=== PATIENT | male | born 1955 | race Caucasian/White ===

== ENCOUNTER 2019-11-07 12:05 | Inpatient (IN) | payer BC, OTHER ==
[~2019-11-07] VITALS: Ht 177.8 cm; Wt 100.1 kg
[2019-11-07 12:35] LABS: BASOPHILS ABSOLUTE AUTO 0.06 K/mm3 (0.00-0.23); BASOPHILS PERCENT AUTO 1 % (0-2); EOSINOPHILS ABSOLUTE AUTO 0.17 K/mm3 (0.00-0.68); EOSINOPHILS PERCENT AUTO 2 % (0-6); Hematocrit 30.9 % (37.0-53.0); Hemoglobin 10.2 g/dL (13.5-17.5); IMMATURE GRAN ABSOLUTE AUTO 0.02 K/mm3 (0.00-0.10); IMMATURE GRAN PERCENT AUTO 0 % (0-1); LYMPHOCYTES ABSOLUTE AUTO 1.59 K/mm3 (0.84-5.20); LYMPHOCYTES PERCENT AUTO 21 % (21-46); MONOCYTES ABSOLUTE AUTO 0.81 K/mm3 (0.16-1.47); MONOCYTES PERCENT AUTO 11 % (4-13); Mean Corpuscular HGB 31.5 pg (26.0-34.0); Mean Corpuscular Volume 95 fL (80-100); Mean Platelet Volume 8.6 fL (9.1-12.4); NEUTROPHILS ABSOLUTE AUTO 4.84 K/mm3 (1.96-9.15); NEUTROPHILS PERCENT AUTO 65 % (41-73); NRBC ABSOLUTE 0.03 K/mm3 (0.00-0.02); NRBC Auto 0.4 /100 WBC (0.0-0.2); Platelet Count 360 K/mm3 (150-400); RDW Standard Deviation 45.2 fL (35.1-46.3); Red Blood Cell Count 3.24 M/mm3 (4.30-5.90); White Blood Cell Count 7.49 K/mm3 (4.00-11.30)
[2019-11-07 12:54] LABS: Alanine Aminotransfer (ALT/SGP 28 U/L (12-78); Albumin, Blood 3.3 g/dL (3.4-5.0); Albumin/Globulin Ratio 0.8 (0.8-1.8); Alk Phos 66 U/L (50-136); Anion Gap 7 mmol/L (6-16); Aspartate Aminotrans (AST/SGOT 28 U/L (12-37); Bilirubin, Total 0.3 mg/dL (0.1-1.0); Blood Urea Nitrogen 10 mg/dL (8-24); Bun/Creatinine Ratio 10.5 (12.0-20.0); CO2, Blood 26 mmol/L (21-32); Calcium, Blood 8.3 mg/dL (8.5-10.1); Chloride, Blood 107 mmol/L (98-108); Creatinine, Blood 0.95 mg/dL (0.60-1.20); Globulin, Blood 4.4 g/dL (2.2-4.0); Glomerular Filtration Rate >60 (60-); Glucose, Blood 104 mg/dL (70-99); Potassium, Blood 3.8 mmol/L (3.5-5.5); Sodium, Blood 140 mmol/L (136-145); Total Protein, Blood 7.7 g/dL (6.4-8.2); Troponin I 0.054 ng/mL (0.000-0.040)
[2019-11-07] MEDS ORDERED: BRILINTA90 MG PO (14:41)
[2019-11-07] MEDS ORDERED: Metoprolol Tart50 MG PO (14:42)
[2019-11-07] MEDS ORDERED: SILDENAFIL CIT100 MG PO (14:43)
[2019-11-07] MEDS ORDERED: NITROGLYCERIN0.4 M3 SL (14:43)
[2019-11-07] MEDS ORDERED: Simvastatin40 MG PO (14:47)
[2019-11-07] MEDS ORDERED: NITR.4SL SL (14:48)
[2019-11-07] MEDS ORDERED: DELZICOL400 M1 PO (16:37)
--- NOTE | 2019-11-07 18:08 | NUR ---
SHIFT SUMMARY PATIENT IS A NEW ADMIT TO THE FLOOR AROUND 1600. PATIENT WAS SEEN BY DR. RODRIGUEZ AND WILL HAVE TELEMTRY. HE IS PLEASANT, ALERT AND ORIENTED AND NOTED TO HAVE SOB WITH SIGNIFICANT EXERTION. NO ACUTE CONCERNS AT THIS TIME. HE DENIES CHEST PAIN OR SHORTNESS OF BREATH AT THIS TIME.
[2019-11-07 21:30] LABS: Creatine Kinase MB 1.8 ng/mL (0.0-3.6); Creatine Kinase MB Index 1.3 (0.0-4.0); Troponin I 0.046 ng/mL (0.000-0.040)
[2019-11-08 05:18] LABS: BASOPHILS ABSOLUTE AUTO 0.06 K/mm3 (0.00-0.23); BASOPHILS PERCENT AUTO 1 % (0-2); EOSINOPHILS PERCENT AUTO 3 % (0-6); Hematocrit 29.3 % (37.0-53.0); Hemoglobin 9.3 g/dL (13.5-17.5); IMMATURE GRAN ABSOLUTE AUTO 0.01 K/mm3 (0.00-0.10); IMMATURE GRAN PERCENT AUTO 0 % (0-1); LYMPHOCYTES ABSOLUTE AUTO 1.43 K/mm3 (0.84-5.20); LYMPHOCYTES PERCENT AUTO 21 % (21-46); MONOCYTES ABSOLUTE AUTO 0.61 K/mm3 (0.16-1.47); MONOCYTES PERCENT AUTO 9 % (4-13); Mean Corpuscular HGB 30.6 pg (26.0-34.0); Mean Corpuscular HGB Conc 31.7 g/dL (31.5-36.5); Mean Corpuscular Volume 96 fL (80-100); Mean Platelet Volume 8.8 fL (9.1-12.4); NEUTROPHILS ABSOLUTE AUTO 4.46 K/mm3 (1.96-9.15); NEUTROPHILS PERCENT AUTO 66 % (41-73); Platelet Count 316 K/mm3 (150-400); RDW Coefficient Variation 14.4 % (11.7-14.2); RDW Standard Deviation 47.3 fL (35.1-46.3); Red Blood Cell Count 3.04 M/mm3 (4.30-5.90); White Blood Cell Count 6.77 K/mm3 (4.00-11.30)
[2019-11-08 05:49] LABS: Anion Gap 6 mmol/L (6-16); Blood Urea Nitrogen 11 mg/dL (8-24); CO2, Blood 26 mmol/L (21-32); Calcium, Blood 8.1 mg/dL (8.5-10.1); Chloride, Blood 108 mmol/L (98-108); Cholesterol 141 mg/dL (50-200); Creatinine, Blood 0.92 mg/dL (0.60-1.20); Glomerular Filtration Rate >60 (60-); Glucose, Blood 92 mg/dL (70-99); HDL Cholesterol 47 mg/dL (>39); LDL/HDL RATIO 1.6; Low Density Lipoprotein Chol 75 mg/dL (0-110); Potassium, Blood 3.6 mmol/L (3.5-5.5); Sodium, Blood 140 mmol/L (136-145); Triglycerides 93 mg/dL (30-160); Troponin I 0.058 ng/mL (0.000-0.040); Very Low Density Lipoprot Chol 18 mg/dL (6-32)
--- NOTE | 2019-11-08 07:52 | NUR ---
SHIFT SUMMARY PATIENT HAD NO COMPLAINTS OF SHORTNESS OF BREATH OR CHEST PAIN. SLEPT ALL NIGHT WITH MINIMAL NEEDS. IV PATENT AND FLUSHED. BED IN LOWEST POSITION WITH WHEELS LOCKED AND ALARM ON. CALL LIGHT WITHIN REACH. REPORT GIVEN TO ONCOMING RN.
--- NOTE | 2019-11-08 16:31 | NUR ---
HOME MEDICATIONS: NOTIFIED DR ORDONEZ OF PT REFUSING TO TAKE MEDICATIONS FROM PHARMACY. PT HAS HOME MEDICATIONS IN HIS PILL BOX AND WILL ONLY TAKE HIS PILLS. THE PILL BOTTLES ARE AT HOME WHICH IS IN [facility] SO HE DOES NOT HAVE ACCESS TO THEM. RECEIVED ORDER FROM DR ORDONEZ FOR PT TO CONTINUE TAKING HIS HOME MEDICATIONS. PAPER COUNTERNERIS KAMARA AND PHARMACY NOTIFIED.
--- NOTE | 2019-11-08 17:31 | NUR ---
SHIFT SUMMARY: PT A&O X4 AND INDEPENDENT IN ROOM. PT AMBULATED MULTIPLE TIMES AROUND HALLWAYS WITH . PT REPORTS NO PAIN OR NAUSEA. VSS. AT BEDSIDE FOR MOST OF THE DAY. PT ON TELE RUNNING AT [address] AT 1315. WILL CONTINUE TO MONITOR PT UNTIL GIVING REPORT TO NIGHT RN.
--- NOTE | 2019-11-09 04:44 | NUR ---
SHIFT SUMMARY- PT. PLEASANT AND COOPERATIVE WITH CARE. A&O, INDEP IN ROOM. DENIED C/O CP OR DISCOMFORT. ON RA, SR ON TELE. PT. ASLEEP T/O THE SHIFT. NO APPARENT DISTRESS NOTED. SCHEDULED FOR POSS SECOND PART OF STRESS TEST TODAY. CALL LIGHT WITHIN REACH AND SIDE RAILS UP X2. WILL CONT TO MONITOR.
[2019-11-09 09:13] LABS: Percent Saturation 9.5 % (20.0-50.0)
[2019-11-09 09:48] LABS: Thyroid Stimulating Hormone 5.12 uIU/mL (0.360-4.800)
[2019-11-09 12:02] LABS: Free Thyroxine 0.96 ng/dL (0.70-1.60)
[2019-11-09 12:04] LABS: Triiodothyronine, Free 2.46 pg/mL (2.18-3.98)
--- NOTE | 2019-11-10 05:56 | NUR ---
SHIFT SUMMARY PT IS A 64 Y/O MALE, ADMITTED FOR ELEVATED TROPONINS AND SOB. HE IS A&O X 4, ABLE TO AMBULATE INDEPENDENTLY. NO COMPLAINTS OF CHEST PAIN, SOB OR NAUSEA. VITAL SIGNS STABLE. TELE MONITOR SHOWED NSR @ 60. NO ACUTE CHANGES IN PT CONDITION NOTED. PT SLEPT WELL THROUGH THE NIGHT. WILL CONTINUE TO MONITOR AND TREAT PER EMAR UNTIL HAND OFF TO DAY SHIFT RN.
--- NOTE | 2019-11-10 10:39 | NUR ---
shift summary Pt a/o x 4. ambulating without assistance and no pain/sob. telemetry in place. pt npo for morning. taken to laborer heading by wheelchair approx 1030. iv in [address] and flushes.
--- NOTE | 2019-11-10 14:48 | NUR ---
ASSUMED PATIENT CARE. TR BAND IN PLACE, NO NEW DISCHARGE NOTED, NON-TENDER, NO SIGNS OF ACUTE DISTRESS, NO CHEST PAIN/PRESSURE.
--- NOTE | 2019-11-10 18:03 | NUR ---
NO ACUTE EVENTS THIS HALF OF SHIFT. PATIENT TRANSFERED TO UNIT FROM BROACH OPERATOR POST-ANGIO. NSTEMI, 2 PART STRESS TEST ABNORMAL, LEADING TO CARDIO CONSULT AND ANGIO TODAY. PATIENT HAS HISTORY OF STENTS. PATIENT DENIED CHEST PAIN/PRESSURE. R. RADIAL SITE NON-TENDER, NO NEW DRAINAGE NOTED. SKIN TEAR ON R. PALM, SOME BLEEDING ON PALM, REDRESSED WITH GAUZE AND CLOTH TAPE. NO SIGNS OF ACUTE DISTRESS, PATIENT IS ALERT AND ORIENTED.
--- NOTE | 2019-11-10 19:05 | NUR ---
RELINQUISHED PATIENT CARE.
--- NOTE | 2019-11-10 21:36 | NUR ---
UPDATE PT A&O; NSR NOTED ON TELE; PT DENIES CHEST PAIN; TR BAND REMOVED APPROXIMATELY 2100; SKIN TEAR ON HEEL OF HAND RE-DRESSED W/ 2X2 & BAND AID; PT DENIES NEEDS AT THIS TIME; CALL LIGHT IN REACH; BED IN LOWEST POSITION
[2019-11-11 03:51] LABS: BASOPHILS ABSOLUTE AUTO 0.05 K/mm3 (0.00-0.23); BASOPHILS PERCENT AUTO 1 % (0-2); EOSINOPHILS ABSOLUTE AUTO 0.19 K/mm3 (0.00-0.68); EOSINOPHILS PERCENT AUTO 2 % (0-6); Hematocrit 29.1 % (37.0-53.0); Hemoglobin 9.3 g/dL (13.5-17.5); IMMATURE GRAN ABSOLUTE AUTO 0.01 K/mm3 (0.00-0.10); IMMATURE GRAN PERCENT AUTO 0 % (0-1); LYMPHOCYTES ABSOLUTE AUTO 1.57 K/mm3 (0.84-5.20); LYMPHOCYTES PERCENT AUTO 20 % (21-46); MONOCYTES ABSOLUTE AUTO 0.64 K/mm3 (0.16-1.47); MONOCYTES PERCENT AUTO 8 % (4-13); Mean Corpuscular HGB 30.8 pg (26.0-34.0); Mean Corpuscular Volume 96 fL (80-100); Mean Platelet Volume 8.8 fL (9.1-12.4); NEUTROPHILS PERCENT AUTO 69 % (41-73); Platelet Count 320 K/mm3 (150-400); RDW Coefficient Variation 15.1 % (11.7-14.2); RDW Standard Deviation 51.4 fL (35.1-46.3); Red Blood Cell Count 3.02 M/mm3 (4.30-5.90); White Blood Cell Count 7.86 K/mm3 (4.00-11.30)
[2019-11-11 04:09] LABS: Anion Gap 6 mmol/L (6-16); Blood Urea Nitrogen 12 mg/dL (8-24); Bun/Creatinine Ratio 10.9 (12.0-20.0); CO2, Blood 25 mmol/L (21-32); Calcium, Blood 7.8 mg/dL (8.5-10.1); Chloride, Blood 108 mmol/L (98-108); Glomerular Filtration Rate >60 (60-); Glucose, Blood 90 mg/dL (70-99); Potassium, Blood 3.8 mmol/L (3.5-5.5); Sodium, Blood 139 mmol/L (136-145)
--- NOTE | 2019-11-11 05:27 | NUR ---
SHIFT SUMMARY PT A&O X 4; DENIES CHEST PAIN; VSS; NOT ACUTE CHANGES THIS SHIFT; INDEPENDENT IN ROOM; PT OFFERED SLEEP MASK, EAR PLUGS, WARM BLANKET FOR COMFORT; PT DENIED; PT WORE PERSONAL EAR PLUGS; SLEPT SEVERAL HOURS IN BETWEEN INTERVENTIONS; CALL LIGHT IN REACH; BED IN LOWEST POSITION; WILL CONTINUE TO MONITOR CLOSELY UNTIL HAND OFF TO DAY SHIFT RN.
--- NOTE | 2019-11-11 07:23 | NUR ---
ASSUMED PATIENT CARE. PATIENT SLEEPING COMFORTABLY IN BED, NO SIGNS OF ACUTE DISTRESS, NO NEW DISCHARGE NOTED AT RADIAL SITE. WCTM.
[2019-11-11] MEDS ORDERED: ACET325 PO (10:12)
[2019-11-11] MEDS ORDERED: ASCO500 PO (10:13)
[2019-11-11] MEDS ORDERED: Aspir 8181 MG PO (10:15)
[2019-11-11] MEDS ORDERED: FERSU300 PO (10:15)
[2019-11-11] MEDS ORDERED: ONDA4ODT MM (10:16)
[2019-11-11] MEDS ORDERED: LISI5 PO (10:18)
--- NOTE | 2019-11-11 10:55 | NUR ---
PATIENT AND SPOUSE PROVIDED WITH DISCHARGE INFO REGARDING POST-ANGIO WOUND CARE AND LIMITATIONS, MEDICATION INFO, REASONS TO RETURN TO THE HOSPITAL, AND FOLLOW UP APPOINTMENTS AND REFERALS. PATIENT AND SPOUSE VERBALIZED UNDERSTANDING, NO SIGNS OF ACUTE DISTRESS.
== END 2019-11-11 11:20 | disposition home or self-care (01) | DRG 247 ==
LOC: ER 12:05 → MEDS 12:06 → ER 15:06 → MEDS 15:06 → PCU 11-10 11:03
PROVIDERS: Emergency Medicine; Internal Medicine; ADMIT Internal Medicine
PROC: 027034Z Dilation of Coronary Artery, One Artery with Drug-eluting Intraluminal Device, Percutaneous Approach (ICD-10-PCS; principal; 2019-11-10)
PROC: B2111ZZ Fluoroscopy of Multiple Coronary Arteries using Low Osmolar Contrast (ICD-10-PCS; 2019-11-10)
PROC: 4A023N7 Measurement of Cardiac Sampling and Pressure, Left Heart, Percutaneous Approach (ICD-10-PCS; 2019-11-10)
DX: I21.4 Non-ST elevation (NSTEMI) myocardial infarction (principal); K51.90 Ulcerative colitis, unspecified, without complications; N40.0 Benign prostatic hyperplasia without lower urinary tract symptoms; I25.10 Atherosclerotic heart disease of native coronary artery without angina pectoris; I10 Essential (primary) hypertension; D50.9 Iron deficiency anemia, unspecified; Z20.828 Contact with and (suspected) exposure to other viral communicable diseases; E66.9 Obesity, unspecified; Z68.30 Body mass index [BMI] 30.0-30.9, adult; I25.2 Old myocardial infarction; Z95.5 Presence of coronary angioplasty implant and graft; Z95.1 Presence of aortocoronary bypass graft; Z79.82 Long term (current) use of aspirin
CPT/HCPCS: 36415; 71045; 76937; 78452; 80048; 80053; 80061; 82550; 82553; 82607; 82728; 82746; 83540; 83550; 83880; 84439; 84443; 84480; 84481; 84484; 85025; 85347; 92921; 93005; 93010; 93017; 93306; 93458; 93571; 99152; 99153; 99285-25; A9500; C1725; C1769; C1874; C1887; C1894; C9600; C9601; G0378; J0706; J1644; J2250; J2785; J3010; J7030; Q9967; U0002